=== PATIENT | male | born 1970 | race American Indian/Alaskan Native ===

== ENCOUNTER 2022-06-19 08:19 | Emergency (ER) | payer SELFPAY ==
[2022-06-19] MEDS ORDERED: SODIUM CHLORIDE 0.9% 1000 ML 1,000 ML ONE (08:47)
[2022-06-19] MEDS ORDERED: SODIUM CHLORIDE 0.9% 1000 ML 1,000 ML IV ONE (14:02)
--- NOTE | 2022-06-19 14:08 | Emergency Department Report ---
- General Chief complaint: Weakness Stated complaint: NAUSEA/WEAKNESS Time Seen by Provider: 06/19/22 09:23 Source: patient, EMS Mode of arrival: Stretcher Limitations: No Limitations - History of Present Illness Initial comments: 51 yo M who present with generalized weakness and near syncope that occurred shortly after having bowel movement. No fever or chills reported. No other modifying or associated factors. Pt came into the ED with noted hypotension. MD Complaint: generalized weakness Severity scale (0 -10): 0 - Related Data Allergies Allergy/AdvReac Type Severity Reaction Status Date / Time Penicillins Allergy Anaphylaxis Verified 06/19/22 08:30 ED Review of Systems ROS: Stated complaint: NAUSEA/WEAKNESS Other details as noted in HPI Comment: All other systems reviewed and negative Cardiovascular: syncope ED Past Medical Hx - Past Medical History Previous Medical History?: Yes Hx Hypertension: Yes Additional medical history: AFIB - Surgical History Past Surgical History?: Yes - Social History Smoking Status: Never Smoker Substance Use Type: None ED Physical Exam - General Limitations: No Limitations General appearance: alert, in no apparent distress - Head Head exam: Present: normal inspection - Eye Eye exam: Present: normal appearance Pupils: Present: normal accommodation - ENT ENT exam: Present: normal exam, normal orophraynx, mucous membranes moist - Neck Neck exam: Present: normal inspection, full ROM. Absent: tenderness - Respiratory Respiratory exam: Present: normal lung sounds bilaterally. Absent: respiratory distress, accessory muscle use - Cardiovascular Cardiovascular Exam: Present: regular rate, normal rhythm, normal heart sounds - GI/Abdominal GI/Abdominal exam: Present: soft, normal bowel sounds. Absent: distended, tenderness - Extremities Exam Extremities exam: Present: normal inspection, full ROM, normal capillary refill. Absent: tenderness, pedal edema - Back Exam Back exam: Absent: tenderness - Neurological Exam Neurological exam: Present: alert, oriented X3 - Psychiatric Psychiatric exam: Present: normal affect, normal mood - Skin Skin exam: Present: warm, normal color ED Course Vital Signs 06/19/22 06/19/22 08:21 08:34 Temperature 98.1 F Pulse Rate 60 62 Respiratory 16 17 Rate Blood Pressure 90/51 85/50 [Left] O2 Sat by Pulse 100 92 Oximetry ED Medical Decision Making - Lab Data Result diagrams: 06/19/22 14:26 06/19/22 14:26 - EKG Data -: EKG Interpreted by Me EKG shows normal: sinus rhythm Rate: normal - EKG Data 06/19/22 14:07 Noted with normal sinus rhythm at the rate of 62 bpm, no obvious ST depression or elevation in this abnormal ECG. - Medical Decision Making Here with generealized weakness with near syncope -- this is likely vasovagal related to having bowel movement-- from hypotension-- but differential could be and not limited to seizure, symptomatic anemia, myocardial infarction, pulmonary embolism, anxiety, CVA especially posterior stroke or thyroid abnormality--in order to rule those out I will go ahead and order routine cardiopulmonary work- up that include troponin, EKG, chest x-ray, BNP, CKMB, and CBC, CMP, Urinalysis and thyroid panel for any correctable infectious process or electrolyte abnormality as a cause. Will also order CT brain for any intracranial abnormality as mentioned above. In the meantime will give ivf ns 1L bolus for hydration as most are dehydrated in the hot weather anyway. Pt reports feeling much better with hydration-- with Critical care attestation.: If time is entered above; I have spent that time in minutes in the direct care of this critically ill patient, excluding procedure time. ED Disposition Clinical Impression: Near syncope, Generalized weakness Disposition: 30 STILL A PATIENT Does the pt Need Aspirin: No Condition: Stable Additional Instructions: Increase your daily fluid to help your hydration Maintain adequate rest Please call and schedule follow-up with your primary doctor in the next 2 to 3 days for progress Please do not hesitate to call or return to emergency if your symptoms worsen Referrals: PRIMARY CARE, [Primary Care Provider] - 3-5 Days Time of Disposition: 14:12
[2022-06-19 14:47] LABS: Hematocrit 24.1 % (35.5-45.6); Hemoglobin 8.4 gm/dl (11.8-15.2); Mean Corpuscular HGB Conc 35 % (32-34); Platelet Count 138 K/mm3 (140-440); Red Blood Count 1.89 M/mm3 (3.65-5.03); Red Cell Distribution Width 17.9 % (13.2-15.2)
[2022-06-19 15:10] LABS: Alanine Aminotransferase 32 units/L (7-56); Albumin 4.1 g/dL (3.9-5); BUN/Creatinine Ratio 16; Blood Urea Nitrogen 13 mg/dL (9-20); Calcium 8.8 mg/dL (8.4-10.2); Hemolysis Index 24
[2022-06-19 15:11] LABS: INR 1.05 (0.87-1.13)
[2022-06-19 15:12] LABS: Mean Corpuscular Volume 127 fl (84-94)
[2022-06-19 15:56] LABS: Basophils % (Manual) 0 % (0.0-1.8); Hypochromasia 2+; Macrocytosis 3+; Ovalocytes 2+; Tear Drop Cells 1+; Total Cells Counted 100
[2022-06-19 15:57] LABS: Anisocytosis 2+
[2022-06-19 15:58] LABS: Platelet Estimate Consistent w Auto
--- NOTE | 2022-06-19 17:23 | Emergency Department Report ---
ED Syncope HPI - General Chief Complaint: Weakness Stated Complaint: NAUSEA/WEAKNESS Time Seen by Provider: 06/19/22 09:23 Source: patient Exam Limitations: no limitations - History of Present Illness Initial Comments: Note this is a signed out chart with a follow hpi and exam. Dr Allegra adams evaluated the patient. 51-year-old male presents to the hospital near syncopal episode. I received signout from Dr. Valero to follow-up labs and dispo patient. Patient initially presented hypotensive but blood pressure and symptoms improved after 1 L of normal saline. Patient has a history of hypertension and atrial fibrillation currently on antihypertensive medication and Eliquis. 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 Yesterday he reports feeling worn out and tired throughout his shift. Today he felt thought that he felt better but after arriving at his first destination he was too weak to unload the truck at cargo. Patient states he was lightheaded, diaphoretic, felt disoriented, and developed several episodes of vomiting. Patient began to feel better after vomiting episodes. He denies headache, chest pain, shortness of breath or abdominal pain. He does endorse constipation with infrequent bowel movements for the last several weeks. He also states he probably is not drinking enough fluids while at work. he is compliant with his medications and denies melena, hematochezia, or hematemesis. He also denies alcohol or drug use. His machine chain maker is Dr. Barroso associated with [facility]. It was recommended that he have a stress test 2 months ago but he did not follow-up because he he was told he needed to pay [id number]. - Related Data Allergies/Adverse Reactions: Allergies Penicillins Allergy (Verified 06/19/22 08:30) Anaphylaxis ED Review of Systems ROS: Stated complaint: NAUSEA/WEAKNESS Other details as noted in HPI Comment: All other systems reviewed and negative Cardiovascular: syncope ED Past Medical Hx - Past Medical History Previous Medical History?: Yes Hx Hypertension: Yes Additional medical history: AFIB - Surgical History Past Surgical History?: Yes - Social History Smoking Status: Never Smoker Substance Use Type: None ED Physical Exam - General Limitations: No Limitations General appearance: alert, in no apparent distress - Other Other exam information: cardiac: Regular rate and rhythm Abdomen: Soft nontender Rectal: Guaiac negative brown stool ED Course Vital Signs 06/19/22 06/19/22 06/19/22 08:21 08:34 12:06 Temperature 98.1 F Pulse Rate 60 62 74 Respiratory 16 17 18 Rate Blood Pressure 90/51 85/50 142/75 [Left] O2 Sat by Pulse 100 92 98 Oximetry 06/19/22 06/19/22 14:06 16:07 Temperature Pulse Rate 77 78 Respiratory 18 18 Rate Blood Pressure 164/96 151/83 [Left] O2 Sat by Pulse 98 98 Oximetry - Reevaluation(s) Reevaluation #1: 06/19/22 17:56 Vital signs improved compared to arrival vital signs. - Consultations Consultation #1: 06/19/22 17:26 case d/w cardiology staff occupational therapist Dr martinez (Dr Ramirez partner). If pt is feeling better, states he can follow up. ED Medical Decision Making - Lab Data Result diagrams: 06/19/22 14:26 06/19/22 14:26 Lab Results 06/19/22 06/19/22 06/19/22 Range/Units 14:06 14:26 14:26 WBC 6.6 (4.5-11.0) K/mm3 RBC 1.89 L (3.65-5.03) M/mm3 Hgb 8.4 L (11.8-15.2) gm/dl Hct 24.1 L (35.5-45.6) % MCV 127 H (84-94) fl MCH 44 H (28-32) pg MCHC 35 H (32-34) % RDW 17.9 H (13.2-15.2) % Plt Count 138 L (140-440) K/mm3 Add Manual Diff Complete Total Counted 100 Seg Neuts % (Manual) 76.0 H (40.0-70.0) % Band Neutrophils % 0 % Lymphocytes % (Manual) 22.0 (13.4-35.0) % Reactive Lymphs % (Man) 0 % Monocytes % (Manual) 1.0 (0.0-7.3) % Eosinophils % (Manual) 1.0 (0.0-4.3) % Basophils % (Manual) 0 (0.0-1.8) % Metamyelocytes % 0 % Myelocytes % 0 % Promyelocytes % 0 % Blast Cells % 0 % Nucleated RBC % 1.0 H (0.0-0.9) % Seg Neutrophils # Man 5.0 (1.8-7.7) K/mm3 Band Neutrophils # 0.0 K/mm3 Lymphocytes # (Manual) 1.5 (1.2-5.4) K/mm3 Abs React Lymphs (Man) 0.0 K/mm3 Monocytes # (Manual) 0.1 (0.0-0.8) K/mm3 Eosinophils # (Manual) 0.1 (0.0-0.4) K/mm3 Basophils # (Manual) 0.0 (0.0-0.1) K/mm3 Metamyelocytes # 0.0 K/mm3 Myelocytes # 0.0 K/mm3 Promyelocytes # 0.0 K/mm3 Blast Cells # 0.0 K/mm3 WBC Morphology Not Reportable Hypersegmented Neuts Not Reportable Hyposegmented Neuts Not Reportable Hypogranular Neuts Not Reportable Smudge Cells Not Reportable Toxic Granulation Not Reportable Toxic Vacuolation Not Reportable Dohle Bodies Not Reportable Pelger-Huet Anomaly Not Reportable [place] Rods Not Reportable Platelet Estimate Consistent w auto Clumped Platelets Not Reportable Plt Clumps, EDTA Not Reportable Large Platelets Not Reportable Giant Platelets Not Reportable Platelet Satelliting Not Reportable Plt Morphology Comment Not Reportable RBC Morphology Not Reportable Dimorphic RBCs Not Reportable Polychromasia Not Reportable Hypochromasia 2+ Poikilocytosis Not Reportable Anisocytosis 2+ Microcytosis Not Reportable Macrocytosis 3+ Spherocytes Not Reportable Pappenheimer Bodies Not Reportable Sickle Cells Not Reportable Target Cells Not Reportable Tear Drop Cells 1+ Ovalocytes 2+ Helmet Cells Not Reportable [place] Bodies Not Reportable [place] Rings Not Reportable Ransom Cells Not Reportable Bite Cells Not Reportable Crenated Cell Not Reportable Elliptocytes Not Reportable Acanthocytes (Spur) Not Reportable Rouleaux Not Reportable Hemoglobin C Crystals Not Reportable Schistocytes Not Reportable Malaria parasites Not Reportable [place] Bodies Not Reportable Hem Pathologist Commnt No PT (12.2-14.9) Sec. INR (0.87-1.13) Sodium 137 (137-145) mmol/L Potassium 4.2 (3.6-5.0) mmol/L Chloride 101.0 (98-107) mmol/L Carbon Dioxide 27 (22-30) mmol/L Anion Gap 13 mmol/L BUN 13 (9-20) mg/dL Creatinine 0.8 (0.8-1.3) mg/dL Estimated GFR > 60 ml/min BUN/Creatinine Ratio 16 % Glucose 115 H (75-100) mg/dL Calcium 8.8 (8.4-10.2) mg/dL Total Bilirubin 1.10 (0.1-1.2) mg/dL AST 54 H (5-40) units/L ALT 32 (7-56) units/L Alkaline Phosphatase 49 (35-129) units/L Troponin T (0.00-0.029) ng/mL Total Protein 6.5 (6.3-8.2) g/dL Albumin 4.1 (3.9-5) g/dL Albumin/Globulin Ratio 1.7 % Urine Color Straw (Yellow) Urine Turbidity Clear (Clear) Specific [place] (Man) 1.005 (1.003-1.030) Ur Protein (Man) 1+ (Negative) mg/dL Ur Ketones (Man) Negative (Negative) Urine Bilirubin (Man) Negative (Negative) Urine WBC (Auto) 1.0 (0.0-6.0) /HPF Urine RBC (Auto) 1.0 (0.0-6.0) /HPF U Epithel Cells (Auto) 1.0 (0-13.0) /HPF Urine RBC (Manual) Negative (Negative) 06/19/22 06/19/22 Range/Units 14:26 14:26 WBC (4.5-11.0) K/mm3 RBC (3.65-5.03) M/mm3 Hgb (11.8-15.2) gm/dl Hct (35.5-45.6) % MCV (84-94) fl MCH (28-32) pg MCHC (32-34) % RDW (13.2-15.2) % Plt Count (140-440) K/mm3 Add Manual Diff Total Counted Seg Neuts % (Manual) (40.0-70.0) % Band Neutrophils % % Lymphocytes % (Manual) (13.4-35.0) % Reactive Lymphs % (Man) % Monocytes % (Manual) (0.0-7.3) % Eosinophils % (Manual) (0.0-4.3) % Basophils % (Manual) (0.0-1.8) % Metamyelocytes % % Myelocytes % % Promyelocytes % % Blast Cells % % Nucleated RBC % (0.0-0.9) % Seg Neutrophils # Man (1.8-7.7) K/mm3 Band Neutrophils # K/mm3 Lymphocytes # (Manual) (1.2-5.4) K/mm3 Abs React Lymphs (Man) K/mm3 Monocytes # (Manual) (0.0-0.8) K/mm3 Eosinophils # (Manual) (0.0-0.4) K/mm3 Basophils # (Manual) (0.0-0.1) K/mm3 Metamyelocytes # K/mm3 Myelocytes # K/mm3 Promyelocytes # K/mm3 Blast Cells # K/mm3 WBC Morphology Hypersegmented Neuts Hyposegmented Neuts Hypogranular Neuts Smudge Cells Toxic Granulation Toxic Vacuolation Dohle Bodies Pelger-Huet Anomaly J[place] Rods Platelet Estimate Clumped Platelets Plt Clumps, EDTA Large Platelets Giant Platelets Platelet Satelliting Plt Morphology Comment RBC Morphology Dimorphic RBCs Polychromasia Hypochromasia Poikilocytosis Anisocytosis Microcytosis Macrocytosis Spherocytes Pappenheimer Bodies Sickle Cells Target Cells Tear Drop Cells Ovalocytes Helmet Cells [place] Bodies [place] Rings Ransom Cells Bite Cells Crenated Cell Elliptocytes Acanthocytes (Spur) Rouleaux Hemoglobin C Crystals Schistocytes Malaria parasites Bossman Bodies Hem Pathologist Commnt PT 14.9 (12.2-14.9) Sec. INR 1.05 (0.87-1.13) Sodium (137-145) mmol/L Potassium (3.6-5.0) mmol/L Chloride (98-107) mmol/L Carbon Dioxide (22-30) mmol/L Anion Gap mmol/L BUN (9-20) mg/dL Creatinine (0.8-1.3) mg/dL Estimated GFR ml/min BUN/Creatinine Ratio % Glucose (75-100) mg/dL Calcium (8.4-10.2) mg/dL Total Bilirubin (0.1-1.2) mg/dL AST (5-40) units/L ALT (7-56) units/L Alkaline Phosphatase (35-129) units/L Troponin T < 0.010 (0.00-0.029) ng/mL Total Protein (6.3-8.2) g/dL Albumin (3.9-5) g/dL Albumin/Globulin Ratio % Urine Color (Yellow) Urine Turbidity (Clear) Specific [place] (Man) (1.003-1.030) Ur Protein (Man) (Negative) mg/dL Ur Ketones (Man) (Negative) Urine Bilirubin (Man) (Negative) Urine WBC (Auto) (0.0-6.0) /HPF Urine RBC (Auto) (0.0-6.0) /HPF U Epithel Cells (Auto) (0-13.0) /HPF Urine RBC (Manual) (Negative) - Medical Decision Making 51-year-old male presents to the hospital with syncopal episode. I suspect that this was caused by volume depletion and possible vasovagal episode. Patient is hypotensive improved and remained stable after 1 L normal saline. Patient feeling back to baseline without signs of acute hemorrhage. Mild anemia and thrombocytopenia noted. Cause unclear at this time. Patient is on Eliquis for atrial fibrillation and is currently sinus at this time. Troponin negative without signs of ST elevation on EKG. Case was discussed with cardiology who also recommends outpatient follow-up if patient is at baseline pt instructed to f/u with pmd for anemia workup Critical Care Time: No Critical care attestation.: If time is entered above; I have spent that time in minutes in the direct care of this critically ill patient, excluding procedure time. 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 Follow-up with your machine chain maker. Please do not hesitate to call or return to emergency if your symptoms worsen Referrals: PRIMARY CARE, [Primary Care Provider] - 3-5 Days ROBERTO BUSH MD [Staff Physician] - 3-5 Days Forms: Work/School Release Form(ED) Time of Disposition: 17:54
[2022-06-19 17:29] LABS: Color,Urine Straw (Yellow)
[2022-06-19 18:09] VITALS: BP 153/94
--- NOTE | 2022-06-20 22:19 | Electrocardiograph Report ---
[facility] Test Date: 2022-06-19 Test Time: 08:38:23 Pat Name: ANTONY HADDAD Department: Room: Gender: M Toe Pounder: EDINSON : 1970 Requested By: MORGAN ALLEN Order Number: [id number] Reading MD: Babs Castillo Measurements Intervals [place] Rate: 62 P: -21 RI: 217 QRS: -3 QRSD: 81 T: 150 QT: 448 QTc: 454 Interpretive Statements Sinus rhythm Prolonged RI interval Probable anteroseptal infarct, old T wave abnrm suggests ischemia, lateral leads No previous ECG available for comparison Electronically Signed On 06-20-2022 22:18:49 EDT by Babs Castillo
== END 2022-06-19 18:09 | disposition home or self-care (01) ==
LOC: ED 08:19
DX: R55 Syncope and collapse (principal); R53.1 Weakness; I10 Essential (primary) hypertension; Z88.0 Allergy status to penicillin; Z79.899 Other long term (current) drug therapy
CPT/HCPCS: 36415; 80053; 81001; 82271; 84484; 85007; 85025; 85610; 93005; 96360; 99284; J7030